=== PATIENT | female | born 1950 | race Caucasian/White ===

== ENCOUNTER 2019-11-26 08:52 | Outpatient (CLI) | payer MEDICARE, MEDICAID, SELFPAY ==
--- NOTE | ~2019-11-26 | XR_ITS ---
EXAMINATION: XR foot RT min 3V DATE: 11/26/2019 09:20 INDICATION: Right foot pain, possible foreign body TECHNIQUE: Dorsoplantar, lateral, and 2 oblique views of the right foot were obtained. COMPARISON: None. FINDINGS: There is no fracture, dislocation, or subluxation. No radiopaque foreign body is identified . There is mild plantar soft tissue swelling projecting in the metatarsals on the lateral view. IMPRESSION: 1. Plantar soft tissue swelling without evidence of acute osseous abnormality or radiopaque foreign b reilly. Reviewed, dictated and finalized at location A. IMPRESSION: 1. Plantar soft tissue swelling without evidence of acute osseous abnormality o r radiopaque foreign body.
== END 2019-11-26 08:53 | disposition home or self-care (01) ==
PROVIDERS: PCP Internal Medicine Gastroenterology; Visit Provider Podiatrist Foot & Ankle Surgery
DX: M79.671 Pain in right foot (principal); M79.89 Other specified soft tissue disorders
CPT/HCPCS: 73630

== ENCOUNTER 2020-10-08 13:11 | Outpatient (CLI) | payer MEDICARE, MEDICAID, SELFPAY ==
--- NOTE | ~2020-10-08 | MM_ITS ---
EXAMINATION: MM screening joya BI w actherine HISTORY: Screening TECHNIQUE: Craniocaudal and mediolateral oblique 3-D tomosynthesis images were obtained and synthetic 2-D images were generated. CAD analysis was submitted and interpreted. COMPARISON: Comparison to multiple prior studies sequentially, with oldest reviewed study dated 11/15. BREAST PARENCHYMAL COMPOSITION: The breasts are almost entirely fatty. FINDINGS: There is no evidence of suspicious mass, calcification, or architectural distortion to sugg est malignancy in either breast. There has been no suspicious interval change. IMPRESSION: 1. No mammographic evidence of malignancy. 2. Recommend routine screening mammography in one year. BI-RADS Category 1: Negative Reviewed, dictated and finalized at location D. I/99
== END 2020-10-08 13:12 | disposition home or self-care (01) ==
PROVIDERS: PCP Internal Medicine Gastroenterology; Visit Provider Internal Medicine Gastroenterology
DX: Z12.31 Encounter for screening mammogram for malignant neoplasm of breast (principal)
CPT/HCPCS: 77063; 77067

== ENCOUNTER 2020-10-09 14:22 | Emergency (ER) | payer MEDICARE, MEDICAID, SELFPAY ==
--- NOTE | ~2020-10-09 | XR_ITS ---
EXAMINATION: XR knee LT min 4V EXAM DATE: 10/09/2020 14:44 INDICATION: Fell this morning with left anterior knee pain. Initial encounter. TECHNIQUE: Left knee frontal, crosstable lateral, orthogonal oblique projections for interpretation. Additional sunrise projection. Correlation is made to prior MRI examination from 08/22/2008. FINDINGS: No evidence osteochondral defect or joint body in the left knee joint. There are no acute fractures or dislocations identified. There is no subcutaneous gas. The soft tissue is unremarkabl e. There are no radiopaque foreign bodies. No joint effusion. IMPRESSION: 1. Unremarkable XR knee LT min 4V exam. Reviewed, dictated and finalized at location A. [employer]
[2020-10-09 14:28] VITALS: BP 130/71; PULSE 103; RESP 16; TEMP 37.1; O2SAT 99
--- NOTE | 2020-10-09 15:15 | ED.LOWEXIN ---
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 Patient states she slipped and fell striking her knee prior to arrival. She complains of mild pain is worse with motion, better at rest, located at the proximal moore. No bleeding, deformity, significant swelling-but there may have been some giveaway that prompted the injury. She declines prescription pain meds, citing allergies and efficacy of Tylenol[ but would like some antifungal refill]. Related Data Home Medications Medication Instructions Recorded Confirmed chlordiazepoxide HCl 5 mg PO BID 10/09/20 10/09/20 losartan 25 mg PO DAILY 10/09/20 10/09/20 Allergies Allergy/AdvReac Type Severity Reaction Status Date / Time prednisone Allergy Intermediate Unknown Verified 10/09/20 15:17 cephalexin Allergy Mild unknown Verified 10/09/20 15:17 morphine Allergy Mild unknown Verified 10/09/20 15:17 chlorpheniramine Allergy Unknown Unknown Verified 10/09/20 15:17 ciprofloxacin Allergy Unknown Unknown Verified 10/09/20 15:17 codeine Allergy Unknown Unknown Verified 10/09/20 15:17 doxycycline Allergy Unknown Unknown Verified 10/09/20 15:17 propoxyphene Allergy Unknown Unknown Verified 10/09/20 15:17 pseudoephedrine Allergy Unknown Unknown Verified 10/09/20 15:17 Sulfa (Sulfonamide Allergy Unknown Unknown Verified 10/09/20 15:17 Antibiotics) antihistimines Allergy Severe diff Uncoded 10/09/20 15:17 breathing CHLORPHENIRAMINE MALEATE Allergy Severe diff Uncoded 10/09/20 15:17 breathing CIPROFLOXACIN HCL Allergy Severe bp drop Uncoded 10/09/20 15:17 PSEUDOEPHEDRINE HCL Allergy Severe diff Uncoded 10/09/20 15:17 breathing tape products Allergy Severe skin Uncoded 10/09/20 15:17 irritation, blisters PROPOXYPHENE HCL Allergy Intermediate states Uncoded 10/09/20 15:17 caused n/v Review of Systems Review of Systems: Narrative: General/Constitutional: No weight loss,fever Eyes: N0: Redness,discharge Ears/Nose/Throat: No: Epistaxis,ear discharge Respiratory: Denies: Hemoptysis Gastrointestinal: No Vomiting, Bleeding-rectal Skin: No Lumps, eruption Neurologic: No Focal Weakness,Sz Hematologic: Denies: Petechiae/Purpura Psychiatric: No: Suicida ideationl All Other Systems: Reviewed and Negative [facility] Family History Family History (Updated 03/05/16 @ 23:19 by DOCTOR UNKNOWN) Father Hypertension Family history of diabetes mellitus in first degree relative Mother Hypertension Family history of diabetes mellitus in first degree relative Sibling Hypertension Family history of diabetes mellitus in first degree relative Social History Social History Alcohol intake: never Comments At time of signature, agree with nursing past medical, surgical, social and family history. There is no relevant family history pertinent to the presenting complaint Exam Narrative: Exam Narrative: General Appearance: Well appearing, Conjunctiva clear Ears: External ear normal, Auditory canal normal Nose: Normal nose, Nares clear Mouth/Throat: Normal appearing, Normal lips, Supple Respiratory: Airway patent, No respiratory distress MS-knee: Normal strength --mostly intact, almost unlimited flexion/extension by pain), Tenderness -anteriorly, with mild decreased ROM), no swelling, Other-no anterior drawer, no collateral laxity, no Hang Skin: Warm, Dry, Normal color Neurological: A&O x3, , Normal affect Course Course Emergency Course: Films visualized, interpreted by radiologist, agree, normal see report Vital Signs Vital signs: Vital Signs Temperature 98.8 F 10/09/20 14:28 Pulse Rate 103 H 10/09/20 14:28 Respiratory Rate 16 10/09/20 14:28
== END 2020-10-09 15:36 | disposition home or self-care (01) ==
PROVIDERS: Emergency Provider Emergency Medicine; PCP Internal Medicine Gastroenterology
DX: M23.92 Unspecified internal derangement of left knee (principal); S80.02XA Contusion of left knee, initial encounter; W01.0XXA Fall on same level from slipping, tripping and stumbling without subsequent striking against object, initial encounter; G35 Multiple sclerosis; I10 Essential (primary) hypertension
CPT/HCPCS: 73564; 99213; G0463

== ENCOUNTER 2021-02-21 15:49 | Emergency (ER) | payer MEDICARE, MEDICAID, SELFPAY ==
--- NOTE | 2021-02-21 15:50 | ED.GENADULT ---
HPI - General Adult General Chief complaint: Urogenital-Female Stated complaint: UTI SYMPTOMS Time Seen by Provider: 02/21/21 15:50 Source: patient Mode of arrival: ambulatory Limitations: no limitations History of Present Illness HPI narrative: 8-year-old female patient presents to the [facility] with complaints of urinary symptoms for the past week and a half. Patient states she was seen at [facility] urgent care about a week and half ago with urinary symptoms and pain was told at that time she had a UTI and was given amoxicillin for treatment. Patient states that she went back after finishing the antibiotics to have them check her urine again because she continued to have symptoms and they did state that she still had some white blood cells in her urine and sent a urine culture but did not treat her with any other medications at that time. Patient presents to this urgent care 2 days later stating she still has lower abdominal pressure and pain, frequency in urination, low back pain, chills and just overall not feeling well. Patient does have history of MS. Related Data Home Medications Medication Instructions Recorded Confirmed chlordiazepoxide HCl 5 mg PO BID 10/09/20 10/09/20 losartan 25 mg PO DAILY 10/09/20 10/09/20 Allergies Allergy/AdvReac Type Severity Reaction Status Date / Time prednisone Allergy Intermediate Unknown Verified 02/21/21 15:54 cephalexin Allergy Mild unknown Verified 02/21/21 15:54 morphine Allergy Mild unknown Verified 02/21/21 15:54 chlorpheniramine Allergy Unknown Unknown Verified 02/21/21 15:54 ciprofloxacin Allergy Unknown Unknown Verified 02/21/21 15:54 codeine Allergy Unknown Unknown Verified 02/21/21 15:54 doxycycline Allergy Unknown Unknown Verified 02/21/21 15:54 propoxyphene Allergy Unknown Unknown Verified 02/21/21 15:54 pseudoephedrine Allergy Unknown Unknown Verified 02/21/21 15:54 Sulfa (Sulfonamide Allergy Unknown Unknown Verified 02/21/21 15:54 Antibiotics) antihistimines Allergy Severe diff Uncoded 02/21/21 15:54 breathing CHLORPHENIRAMINE MALEATE Allergy Severe diff Uncoded 02/21/21 15:54 breathing CIPROFLOXACIN HCL Allergy Severe bp drop Uncoded 02/21/21 15:54 PSEUDOEPHEDRINE HCL Allergy Severe diff Uncoded 10/09/20 15:17 breathing tape products Allergy Severe skin Uncoded 10/09/20 15:17 irritation, blisters PROPOXYPHENE HCL Allergy Intermediate states Uncoded 10/09/20 15:17 caused n/v Review of Systems Review of Systems: Narrative: CONSTITUTIONAL: Denies fever, positive chills, denies sweats. EYES: Denies visual changes, redness, or discharge. ENT: Denies rhinorrhea, congestion, sore throat, or otalgia. CARDIOVASCULAR: Denies chest pain, palpitations, or edema. RESPIRATORY: Denies cough or dyspnea. GASTROINTESTINAL: Lower abdominal pain and pressure, nausea, vomiting, or diarrhea. GENITOURINARY: Denies dysuria or hematuria. Frequency in urination SKIN: Denies rash or itching. MUSCULOSKELETAL: Low back pain, denies joint pain, or myalgia. NEUROLOGIC: Denies headache, numbness, or weakness. PSYCHIATRIC: Denies anxiety or depression. [facility] Past Medical History Medical History (Updated 02/21/21 @ 16:25 by ANG Acosta) Anxiety Colon polyp GERD (gastroesophageal reflux disease) Hypertension Hypoglycemia Multiple sclerosis Surgical History Surgical History (Updated 02/21/21 @ 15:55 by ANG Acosta) H/O: hysterectomy History of appendectomy Family History Family History Father Hypertension Family history of diabetes mellitus in first degree relative Mother Hypertension Family history of diabetes mellitus in first degree relative Sibling Hypertension Family history of diabetes mellitus in first degree relative Social History Social History Alcohol intake: never Comments At t
[2021-02-21 15:53] VITALS: BP 144/99; PULSE 132; RESP 20; TEMP 36.9; O2SAT 99
== END 2021-02-21 16:30 | disposition short-term general hospital (02) ==
PROVIDERS: Emergency Provider Nurse Practitioner Family; PCP Internal Medicine Gastroenterology
DX: R31.9 Hematuria, unspecified (principal); K21.9 Gastro-esophageal reflux disease without esophagitis; I10 Essential (primary) hypertension; G35 Multiple sclerosis
CPT/HCPCS: 81003; 87086; 99213; G0463